=== PATIENT | male | born 1955 | race Caucasian/White ===

== ENCOUNTER → 2024-04-08 09:55 | Outpatient (REF) | payer MEDICARE, SELFPAY ==
[2024-04-08 11:18] LABS: % Basophils 0.4 % (0-2); % Eosinophils 1.9 % (0-6); % Immature Granulocytes 0.8 % (0-0.5); % Lymphocytes 37.2 % (20.5-51.1); % Monocytes 8.9 % (1.7-9.3); % Neutrophils 50.8 % (42.2-75.2); Absolute Eosinophils 0.2 10^3/uL (0-0.7); Absolute Immature Granulocytes 0.1 10^3/uL (0-0.05); Absolute Lymphocytes 2.9 10^3/uL (1.2-3.4); Absolute Monocytes 0.7 10^3/uL (0.1-0.6); Hematocrit 47.5 % (39.0-52.0); Hemoglobin 16.6 g/dL (13.0-18.0); Mean Corp Hgb Conc. 34.9 g/dL (33.0-37.0); Mean Corpuscular Hgb 30.6 pg (27.0-31.0); Mean Corpuscular Volume 87.6 fL (80.0-94.0); Mean Platelet Volume 10.7 fL (7.4-10.4); Nucleated Red Blood Cells % 0 % (-); Platelet Count 194 10^3/uL (130-400); Red Blood Cell Count 5.42 10^6/uL (4.70-6.10); Red Cell Dist. Width 12.6 % (11.5-14.5); White Blood Cell Count 7.9 10^3/uL (4.8-10.8)
[2024-04-08 14:26] LABS: ALT (SGPT) 47 U/L (0-50); AST (SGOT) 33 U/L (17-59); Albumin 4.7 g/dl (3.5-5.0); Alkaline Phosphatase 38 U/L (38-126); Blood Urea Nitrogen 21 mg/dl (9-20); Calcium 9.9 mg/dl (8.4-10.2); Carbon Dioxide 26 mmol/L (22-30); Chloride 101 mmol/L (98-107); Glucose 95 mg/dl (70-99); HDL Cholesterol 47 mg/dl; LDL Cholesterol, Calculated 121 mg/dl; Potassium 4.7 mmol/L (3.5-5.1); Sodium 138 mmol/L (135-145); Total Bilirubin 0.9 mg/dl (0.2-1.3); Total Cholesterol 192 mg/dl (50-199); Total Protein 7.2 g/dl (6.3-8.2); Triglyceride 122 mg/dl (10-149); Very Low Density Lipoprotein 24 mg/dl (0-30); eGFR > 60.00
[2024-04-08 14:46] LABS: PSA, Total - Screen 2.12 ng/ml (0.0-4.0)
[2024-04-11 00:40] LABS: % Free Testosterone 2.3 % (1.6-2.9); Free Testosterone 51 pg/mL (47-244); Sex Hormone Binding Globulin 19 nmol/L (19-76); Total Testosterone 225 ng/dL (300-720)
== END ==
LOC: RAD 09:55
PROVIDERS: ATTENDING PHYSICIAN Internal Medicine
DX: Z00.01 Encounter for general adult medical examination with abnormal findings (principal); E78.5 Hyperlipidemia, unspecified; N52.9 Male erectile dysfunction, unspecified; Z12.5 Encounter for screening for malignant neoplasm of prostate
CPT/HCPCS: 36415; 80053; 80061; 84270; 84402; 84403; 85025; G0103

== ENCOUNTER → 2024-10-09 09:38 | Outpatient (REF) | payer MEDICARE, SELFPAY ==
[2024-10-09 11:20] LABS: Urine Albumin Negative (Neg - Trace); Urine Bilirubin Negative (Negative); Urine Character Clear (Clear); Urine Color Yellow; Urine Glucose Negative (Negative); Urine Ketone Negative (Negative); Urine Leukocyte Negative (Negative); Urine Nitrite Negative (Negative); Urine Occult Blood Negative (Negative); Urine Urobilinogen Negative (Neg - 1+)
[2024-10-09 12:06] LABS: Prolactin 7.3 ng/ml (3.7-17.9)
[2024-10-09 12:20] LABS: TSH Reflex To Free T4 2.75 uIU/ml (0.47-4.68)
[2024-10-11 05:31] LABS: % Free Testosterone 2.3 % (1.6-2.9); Free Testosterone 56 pg/mL (47-244); Sex Hormone Binding Globulin 19 nmol/L (19-76); Total Testosterone 245 ng/dL (300-720)
== END ==
LOC: REG 09:38
PROVIDERS: ATTENDING PHYSICIAN Internal Medicine
DX: R79.89 Other specified abnormal findings of blood chemistry (principal); N52.9 Male erectile dysfunction, unspecified; E66.3 Overweight; R35.0 Frequency of micturition; Z20.820 Contact with and (suspected) exposure to varicella; E03.9 Hypothyroidism, unspecified
CPT/HCPCS: 36415; 81003; 84146; 84270; 84402; 84403; 84443; 86787

== ENCOUNTER → 2024-12-01 10:56 | Outpatient (REF) | payer MEDICARE, SELFPAY | LOC: REG 10:56 | PROVIDERS: ATTENDING PHYSICIAN Internal Medicine | DX: R79.89 Other specified abnormal findings of blood chemistry (principal) | CPT/HCPCS: 36415; 84270; 84402; 84403 ==